=== PATIENT | male | born 1980 | race Caucasian/White ===

== ENCOUNTER 2017-04-21 21:31 | Emergency (ER) | payer OTHER ==
[~2017-04-21] VITALS: Ht 188 cm; Wt 199.6 kg
[2017-04-21 21:41] VITALS: BP_SYST 163
--- NOTE | 2017-04-21 21:48 | NUR ---
Placed in room 07 . Placed on bus driver/monitor, blood pressure machine and pulse oximeter. To gown for exam. Side rails up.
--- NOTE | 2017-04-21 21:50 | NUR ---
ER Dr. Witt at bedside examining patient.
--- NOTE | 2017-04-21 21:55 | NUR ---
Patient brought in complaining for right leg and calf pain x 3 days. Mild swelling and warmth noted to the area. Patient denies any long travel or any trauma to the area. Pain of 4/10. Patient states tolerable. No other complaints/injuries per patient or as noted. Will continue to monitor.
[2017-04-21 23:20] VITALS: BP_SYST 162
--- NOTE | 2017-04-21 23:20 | NUR ---
Patient given written and verbal discharge instructions and verbalizes understanding. ER MD discussed with patient the results and treatment provided. Patient in stable condition. ID arm band removed. No Rx given. Patient educated on pain management and to follow up with PMD in 2-3 days. Pain Scale 0/10 Opportunity for questions provided and answered.
== END 2017-04-21 23:20 | disposition home or self-care (01) ==
LOC: SED 21:31
DX: M21.371 Foot drop, right foot (principal); I10 Essential (primary) hypertension
CPT/HCPCS: 93971; 99284

== ENCOUNTER 2019-10-27 11:38 | Emergency (ER) | payer OTHER ==
[~2019-10-27] VITALS: Ht 188 cm; Wt 186.0 kg
--- NOTE | 2019-10-27 11:45 | NUR ---
PATIENT TO #7 ER BED; PLACED ON DATA SUPPORT SPECIALIST, SAO2, ABP; IV PLACED WITHOUT INCIDENT #20 left hand; BLOOD GLUCOSE 472
--- NOTE | 2019-10-27 11:46 | NUR ---
Pt brought by self , A&O x 4, pt presents to ER with R foot swelling/redness and pain, pt has Hx of diabetes, current BS 452, pt respirations even and unlabored, skin pink and warm, cap refill <3, VSS, pt afebrile, will cont to monitor.
[2019-10-27 12:14] VITALS: BP_SYST 129
[2019-10-27] MEDS ORDERED: METF-833 PO (12:14)
[2019-10-27] MEDS ORDERED: NACL 0.9% 1,000 ML IV ONE (12:15)
[2019-10-27] MEDS ORDERED: KETOROLAC TROMETHAMINE 30 MG VIAL IVP ONE (12:30)
[2019-10-27 13:22] LABS: BASOPHILS # (AUTO) 0.1 K/uL (0.0-0.2); BASOPHILS % (AUTO) 0.8 % (0.0-2.0); EOSINOPHILS # (AUTO) 0.2 K/uL (0.0-0.4); EOSINOPHILS % (AUTO) 2.6 % (0.0-4.0); HEMATOCRIT 37.7 % (36-54); HEMOGLOBIN 12.6 g/dL (14.0-18.0); LYMPHOCYTES # (AUTO) 2.4 K/uL (1.0-5.5); LYMPHOCYTES % (AUTO) 26.4 % (20.5-51.5); MEAN CORPUSCULAR HEMOGLOBIN 29 pg (27-31); MEAN CORPUSCULAR HGB CONC 34 % (32-36); MEAN CORPUSCULAR VOLUME 86 fL (79.0-98.0); MONOCYTES # (AUTO) 0.9 K/uL (0.0-1.0); MONOCYTES % (AUTO) 9.7 % (1.7-9.3); NEUTROPHILS # (AUTO) 5.5 K/uL (1.8-7.7); NEUTROPHILS % (AUTO) 60.5 % (40.0-70.0); PLATELET COUNT (AUTO) 194 K/uL (130-430); RED BLOOD CELL COUNT(AUTO) 4.37 MIL/uL (4.2-6.2); RED CELL DISTRIBUTION WIDTH 15.1 % (9.0-15.0); WHITE BLOOD COUNT (AUTO) 9.1 K/uL (4.8-10.8)
[2019-10-27 13:40] LABS: CALCIUM 8.1 mg/dL (8.4-11.0); CREATININE 1.07 mg/dL (0.55-1.30); POTASSIUM 3.4 mmol/L (3.5-5.1)
[2019-10-27 14:02] LABS: TOTAL BILIRUBIN 0.5 mg/dL (0.0-1.0)
[2019-10-27 14:03] LABS: ALBUMIN 3.1 g/dL (3.4-4.8)
[2019-10-27 14:28] VITALS: BP_SYST 158
--- NOTE | 2019-10-27 14:31 | NUR ---
REASSESSMENT BY ERMD; PATIENT STATES HIS PAIN IS RESOLVED; BLOOD GLUCOSE 346 AND ERMD ADVISED; PATIENT PREPARED FOR DISCHARGE
--- NOTE | 2019-10-27 14:32 | NUR ---
Patient given written and verbal discharge instructions and verbalizes understanding. ER MD discussed with patient the results and treatment provided. Patient in stable condition. ID arm band removed. IV catheter removed intact and dressing applied, no active bleeding. Rx of KEFLEX, NORCO, MOTRIN given. Patient educated on pain management and to follow up with PMD. Pain Scale . Opportunity for questions provided and answered. Medication side effect fact sheet provided.
== END 2019-10-27 14:32 | disposition home or self-care (01) ==
LOC: SED 11:38
DX: L03.115 Cellulitis of right lower limb (principal); F17.200 Nicotine dependence, unspecified, uncomplicated; I50.9 Heart failure, unspecified; E11.9 Type 2 diabetes mellitus without complications
CPT/HCPCS: 36415; 71045; 80053; 82962; 83880; 84484; 85025; 93971; 96374; 99285; J1885; J7030

== ENCOUNTER 2020-09-21 19:08 | Emergency (ER) | payer OTHER ==
[~2020-09-21] VITALS: Ht 188 cm; Wt 181.4 kg
[~2020-09-21 19:08] MED LIST: METF-833 PO
[2020-09-21 19:20] VITALS: BP_SYST 133
[2020-09-21] MEDS ORDERED: SULF1TAB48 PO (19:37)
[2020-09-21] MEDS ORDERED: IBUP-1971 PO (19:37)
[2020-09-21] MEDS ORDERED: METF-833 PO (19:37)
[2020-09-21] MEDS ORDERED: CEPH250C PO (19:37)
[2020-09-21] MEDS ORDERED: KETOROLAC TROMETHAMINE 30 MG VIAL IVP ONE (19:45)
[2020-09-21] MEDS ORDERED: KETOROLAC TROMETHAMINE 30 MG VIAL ONE (19:48)
[2020-09-21] MEDS ORDERED: NACL 0.9% 1,000 ML IV ONE ×2 (20:00→20:15)
[2020-09-21 21:00] VITALS: BP_SYST 116
== END 2020-09-21 21:00 | disposition home or self-care (01) ==
LOC: SED 19:08
DX: L02.211 Cutaneous abscess of abdominal wall (principal); L03.311 Cellulitis of abdominal wall; E11.9 Type 2 diabetes mellitus without complications; I50.9 Heart failure, unspecified; F17.200 Nicotine dependence, unspecified, uncomplicated; F12.90 Cannabis use, unspecified, uncomplicated
CPT/HCPCS: 82962; 96374; 99283; J1885; J7030

== ENCOUNTER 2022-05-03 13:16 | Emergency (ER) | payer OTHER ==
[~2022-05-03] VITALS: Ht 185.4 cm; Wt 113.4 kg
[~2022-05-03 13:16] MED LIST changes: +CEPH250C PO; +IBUP-1971 PO; +SULF1TAB48 PO
[2022-05-03 13:27] VITALS: BP_SYST 148
--- NOTE | 2022-05-03 13:31 | NUR ---
Patient triaged and placed in waiting room. VSS and patient appears in no acute distress at this time. Accompanied by self, awaiting available bed, and Dr. Jatinder ROBISON notified of need for MSE.
--- NOTE | 2022-05-03 13:32 | NUR ---
PATIENT CAME IN FROM HOME C/O BLOOD IN URINE AND STOOL X TWO WEEKS. PT HAS HX OF HYPOTHYROIDISM, DENIES OTHER MEDICAL HX. DENIES F/V/D. PATIENT IS A&OX4 CALM AND COOPERATIVE, VSS. CARE TO BE PROVIDED ORDERED.
--- NOTE | 2022-05-03 14:20 | NUR ---
ER Dr. HONEYCUTT at bedside examining patient.
[2022-05-03 15:35] LABS: BASOPHILS # (AUTO) 0.1 K/uL (0.0-0.2); BASOPHILS % (AUTO) 0.6 % (0.0-2.0); EOSINOPHILS # (AUTO) 0.2 K/uL (0.0-0.4); EOSINOPHILS % (AUTO) 1.6 % (0.0-4.0); HEMATOCRIT 43.1 % (36-54); HEMOGLOBIN 14.8 g/dL (14.0-18.0); LYMPHOCYTES # (AUTO) 2.8 K/uL (1.0-5.5); LYMPHOCYTES % (AUTO) 26.1 % (20.5-51.5); MEAN CORPUSCULAR HEMOGLOBIN 30 pg (27-31); MEAN CORPUSCULAR HGB CONC 34 % (32-36); MEAN CORPUSCULAR VOLUME 87 fL (79.0-98.0); MONOCYTES # (AUTO) 0.6 K/uL (0.0-1.0); MONOCYTES % (AUTO) 5.4 % (1.7-9.3); NEUTROPHILS # (AUTO) 7.1 K/uL (1.8-7.7); NEUTROPHILS % (AUTO) 66.3 % (40.0-70.0); PLATELET COUNT (AUTO) 257 K/uL (130-430); RED BLOOD CELL COUNT(AUTO) 4.96 MIL/uL (4.2-6.2); RED CELL DISTRIBUTION WIDTH 14.4 % (9.0-15.0); WHITE BLOOD COUNT (AUTO) 10.7 K/uL (4.8-10.8)
[2022-05-03 15:44] LABS: CALCIUM 8.5 mg/dL (8.4-11.0); CREATININE 0.83 mg/dL (0.55-1.30)
[2022-05-03 15:50] LABS: ALBUMIN 3.4 g/dL (3.4-4.8); C-REACTIVE PROTEIN QUANT 0.2 mg/dL (0-0.5); TOTAL BILIRUBIN 0.6 mg/dL (0.0-1.0)
[2022-05-03] MEDS ORDERED: IBUP-1971 PO (16:33)
[2022-05-03] MEDS ORDERED: HYDR-3917 PO (16:33)
--- NOTE | 2022-05-03 17:11 | NUR ---
Patient given written and verbal discharge instructions and verbalizes understanding. ER DR. TANGELA ROBISON discussed with patient the results and treatment provided. Patient in stable condition. ID arm band removed. Patient educated on pain management and to follow up with PMD. Pain Scale 0/10. Opportunity for questions provided and answered. Medication side effect fact sheet provided.
== END 2022-05-03 15:43 | disposition home or self-care (01) ==
LOC: SED 13:16
DX: K80.50 Calculus of bile duct without cholangitis or cholecystitis without obstruction (principal); M54.50 Low back pain, unspecified; E11.9 Type 2 diabetes mellitus without complications; Z79.899 Other long term (current) drug therapy
CPT/HCPCS: 36415; 76376; 80053; 82150; 83690; 85025; 86140; 99284